=== PATIENT | male | born 1995 | race Caucasian/White ===

== ENCOUNTER 2017-12-27 00:31 | Emergency (ER) | payer OTHER, SELFPAY ==
--- NOTE | 2017-12-27 00:36 | ERPHSYRPT ---
- History of Present Illness Time Seen by Provider: 12/27/17 00:34 Source: patient Exam Limitations: no limitations Physician History: 22 y/o white male presents with cough. [facility] and dx with bronchitis but feels as though he is not moving any air. pt was given rx for z pack, albuterol inhaler and steroids. pt completed z pack yesterday. pt continues to smoke. Timing/Duration: week(s) (1) Cough Quality/Degree: mild, dry cough Possible Cause: occasional episodes Modifying Factors: Improves With: coughing Associated Symptoms: cough, shortness of breath International travel in last 2 weeks: No Allergies/Adverse Reactions: bee pollen [Bee Pollen] Allergy (Mild, Verified 12/27/17 00:51) Difficulty Breathing droperidol [From Inapsine] Adverse Reaction (Verified 12/27/17 00:51) panic attack olanzapine [From Zyprexa] Adverse Reaction (Verified 12/27/17 00:51) weight gain Home Medications: Albuterol Sulfate [Albuterol Sulfate Hfa] 1 puff IH Q4-6HPRN PRN 12/27/17 [ History] Hx Tetanus, Diphtheria Vaccination/Date Given: Yes (UP TO DATE) Hx Influenza Vaccination/Date Given: No Hx Pneumococcal Vaccination/Date Given: No - Review of Systems Constitutional: No Symptoms, No Fever, No Chills Eyes: No Symptoms, No Discharge, No Eye Pain Ears, Nose, & Throat: No Symptoms, No Ear Pain, No Ear Discharge Respiratory: Cough, Dyspnea, Stridor, No Wheezing Cardiac: No Symptoms, No Chest Pain, No Edema, No Palpitations, No Syncope Abdominal/Gastrointestinal: No Symptoms, No Abdominal Pain, No Nausea, No Vomiting, No Diarrhea Genitourinary Symptoms: No Symptoms, No Dysuria, No Frequency, No Hematuria Musculoskeletal: No Symptoms, Neck Pain, No Back Pain Skin: No Symptoms, No Cellulitis, No Rash Neurological: No Symptoms, No Dizziness, No Headache Psychological: No Symptoms, No Alcohol Abuse, No Drug Abuse, No Anxiety Endocrine: No Symptoms, No Polyuria, No Polydipsia, No Hair Changes Hematologic/Lymphatic: No Symptoms Immunological/Allergic: No Symptoms All Other Systems: Reviewed and Negative - Past Medical History Pertinent Past Medical History: Yes Neurological History: No Pertinent History ENT History: No Pertinent History Cardiac History: No Pertinent History Respiratory History: No Pertinent History Endocrine Medical History: No Pertinent History Musculoskeletal History: No Pertinent History GI Medical History: Other History: No Pertinent History Psycho-Social History: Bipolar, Other Male Reproductive Disorders: No Pertinent History Other Medical History: OCD SCHIZOPHRENIC. frequent headaches. ADHD. ASBURGERS. severe abdominal pain, constipation and rectal bleeding recently - Past Surgical History Past Surgical History: No Neuro Surgical History: No Pertinent History Cardiac: No Pertinent History Respiratory: No Pertinent History Gastrointestinal: No Pertinent History Genitourinary: No Pertinent History Musculoskeletal: No Pertinent History Male Surgical History: No Pertinent History - Social History Smoking Status: Current every day smoker How long have you smoked: 4 Exposure to second hand smoke: Yes Drug Use: none Patient Lives Alone: No Significant Family History: no pertinent family hx - Nursing Vital Signs Nursing Vital Signs: Initial Vital Signs Temperature 98.5 F 12/27/17 00:37 Pulse Rate 72 12/27/17 00:37 Respiratory Rate 98 H 12/27/17 00:37 Blood Pressure 145/73 12/27/17 00:37 O2 Sat by Pulse Oximetry 98 12/27/17 00:37 Pain Scale Pain Intensity 3 - Physical Exam General Appearance: no apparent distress, alert, anxiety Eye Exam: PERRL/EOMI, eyes nml inspection Ears, Nose, Throat Exam: normal ENT inspection, TMs normal, pharynx normal, moist mucous membranes Neck Exam: normal inspection, non-tender, supple, full range of motion Respiratory Exam: normal breath sounds, airway intact, wheezing (mild left upper exp), No chest tenderness, No respiratory distress, No accessory muscle use, No rhonchi, No stridor Cardiovascular Exam: regular rate/rhythm, normal heart sounds, normal peripheral pulses Gastrointestinal/Abdomen Exam: soft, normal bowel sounds, No tenderness, No guarding, No rebound Rectal Exam: not done Back Exam: normal inspection, normal range of motion, No CVA tenderness, No vertebral tenderness Extremity Exam: normal inspection, normal range of motion, pelvis stable Neurologic Exam: alert, oriented x 3, cooperative, statistical assistant II-XII nml as tested Skin Exam: normal color, warm, dry Lymphatic Exam: No adenopathy Oxygen Delivery: Room Air - Course Nursing assessment & vital signs reviewed: Yes Ordered Tests: Active Orders 24 hr Category Date Time Status CHEST 1 VIEW (PORTABLE) Stat Exams 12/27/17 00:55 Ordered Medication Summary Discontinued Medications Generic Name Dose Route Start Last Admin Trade Name Loulou PRN Reason Stop Dose Admin Ceftriaxone Sodium 1,000 mg 12/27/17 00:56 Rocephin 1000 Mg Inj IM 12/27/17 00:57 STAT ONE Methylprednisolone Sodium Succinate 125 mg 12/27/17 00:56 Solu-Medrol 125 Mg IM 12/27/17 00:57 STAT ONE - Progress Progress: improved, re-examined Air Movement: good Blood Culture(s) Obtained: No Antibiotics given: Yes Counseled pt/family regarding: diagnosis, need for follow-up, rad results - Departure Time of Disposition: 01:14 Departure Disposition: Home Clinical Impression: Bronchitis Condition: Stable Critical Care Time: No Referrals: ZIA COLLAZO MD [Primary Care Provider] - Additional Instructions: continue your inhaler. follow up with primary doctor for further management.
[2017-12-27 00:51] VITALS: BP 145/73
[2017-12-27] MEDS ORDERED: solu-MEDROL 125 MG IM ONE (00:56)
[2017-12-27] MEDS ORDERED: Rocephin 1000 MG INJ IM ONE (00:56)
[2017-12-27] MEDS ORDERED: solu-MEDROL 125 MG ONE (01:11)
[2017-12-27] MEDS ORDERED: Rocephin 1000 MG INJ ONE (01:11)
[2017-12-27] MEDS ORDERED: DUONEB 0.5-3 MG/3 ml Neb IH ONE ×2 (01:13→01:16)
[2017-12-27 01:30] VITALS: PULSE 83; O2SAT 96
--- NOTE | 2017-12-27 07:58 | XRAY ---
Indication: Cough and chest tightness. Comparison: November 08, 2016. Portable chest again demonstrates normal heart, lungs, and bony thorax.
== END 2017-12-27 01:36 | disposition home or self-care (01) ==
LOC: ED 00:31
DX: J40 Bronchitis, not specified as acute or chronic (principal)
CPT/HCPCS: 71045; 94150; 94640; 96372; 99284; J0696; J2930; A9270-GY

== ENCOUNTER 2022-12-24 10:43 | Emergency (ER) | payer OTHER ==
[2022-12-24 11:00] VITALS: TEMP 98.4
[2022-12-24 11:20] VITALS: O2SAT 97
[2022-12-24 11:21] LABS: Absolute Neutrophil Ct (ANC) 3.95 x10^3/uL (1.4-6.9); BASOPHIL % 0.6 % (0.0-0.4); Basophil (Absolute #) 0.04 x10^3/uL (0-0.4); Eosinophil % 5.4 % (0.00-5.0); Eosinophil (Absolute #) 0.37 x10^3/uL (0-0.5); Hematocrit 42.2 % (42-50); Hemoglobin 14.1 g/dL (12.5-18.0); IMMATURE GRAN # 0.01 x10^3u/L (0.00-0.03); IMMATURE GRAN % 0.1 % (0.00-0.4); Lymphocyte (Absolute #) 1.91 x10^3/uL (1.0-4.6); Lymphocytes % 28.1 % (24.0-44.0); Mean Corpuscular Hemoglobin 29.7 pg (26-32); Mean Corpuscular Hgb Concent. 33.4 g/dL (32-36); Mean Platelet Volume 9.5 fL (7.5-11.0); Monocyte (Absolute #) 0.52 x10^3/uL (0.0-1.3); Monocytes % 7.6 % (0.0-12.0); Neutrophil % 58.2 % (36.0-66.0); Platelet Count 358 x10^3/uL (150-450); Red Blood Count 4.74 x10^6/uL (4.1-5.6); Red Cell Distribution Width 12.9 % (11.5-14.0); White Blood Count 6.8 x10^3/uL (4.0-10.5)
--- NOTE | 2022-12-24 11:30 | XRAY ---
Indication: Chest pain. Comparison: September 17, 2018 Portable chest again demonstrates normal heart, lungs, and bony thorax.
[2022-12-24 11:34] LABS: ALBUMIN 4.7 g/dL (3.5-5.0); ALKALINE PHOSPHATASE 56 U/L (38-126); ANION GAP 15.1 MEQ/L (5-15); BLOOD UREA NITROGEN 10 mg/dL (9-20); CHLORIDE 105 mmol/L (98-107); Calcium 9.5 mg/dL (8.4-10.2); Carbon Dioxide 24 mmol/L (22-30); EST GLOMERULAR FILTRATION RATE > 60.0 ML/MIN; Glucose 93 mg/dL (74-106); Potassium 3.9 mmol/L (3.5-5.1); SGOT/AST 33 U/L (17-59); SGPT/ALT 26 U/L (0-50); SODIUM 140 mmol/L (137-145); Total Protein 7.8 g/dL (6.3-8.2)
[2022-12-24] MEDS ORDERED: xanAX 0.25 MG PO ONE (12:32)
[2022-12-24] MEDS ORDERED: xanAX 0.25 MG ONE (12:35)
[2022-12-24 12:39] VITALS: PULSE 70; RESP 16
--- NOTE | 2022-12-24 13:24 | XRAY ---
Indication: Chest pain. Elevated d-dimer. Pulmonary embolus. Multiple contiguous axial images obtained through the chest using 80 cc Isovue 370 contrast and PE protocol. Comparison: None Good opacification of the pulmonary arteries to include lobar and segmental branches. No pulmonary embolus. Heart is not enlarged. Aorta is normal in course and caliber. No pathologic mediastinal/hilar lymphadenopathy. Lungs inflated and clear. Bony thorax intact. Limited upper abdomen unremarkable. Impression: Normal CT chest PE exam.
--- NOTE | 2022-12-24 13:34 | ERPHSYRPT ---
- History of Present Illness Time Seen by Provider: 12/24/22 11:00 Historian: patient Exam Limitations: no limitations Patient Subjective Stated Complaint: pt here for cough, pain with deep breath to right side of chest for over a week now, has been seen x2 Triage Nursing Assessment: pt alert, resp easy, walked in, skin w/d/p, no edema noted, moves all ext well Physician History: Patient is a 27-year-old male presents to our ED for evaluation of chest pain and a cough. Chest pain is mostly on the right side. No radiation. Patient was seen on 2 previous occasions for the same. Patient currently on antibiotics. However patient concerned that his symptoms are not improving. Patient has been experiencing the symptoms for approximately 1 week now no associated fever. No nausea vomiting or diaphoresis. No history of PE DVT. No rash. Patient otherwise doing well. Mother at bedside. They voice no other co mplaints or concerns at this time. Portions of this note were created with voice recognition technology. There may be grammatical, spelling, punctuation or sound alike errors Timing/Duration: week(s) (1 week) Activities at Onset: none Quality: aching Location: other (Right side of chest) Chest Pain Radiation: no radiation Severity of Pain-Max: moderate Severity of Pain-Current: mild Modifying Factors: Improves With: coughing Associated Symptoms: denies symptoms Prior Chest Pain/Cardiac Workup: no prior chest pain Nitro Today/Relief: no nitro taken today Aspirin Treatment Today: no aspirin today Allergies/Adverse Reactions: bee pollen [Bee Pollen] Allergy (Mild, Verified 12/24/22 10:53) Difficulty Breathing droperidol [From Inapsine] Adverse Reaction (Verified 12/24/22 10:53) panic attack olanzapine [From Zyprexa] Adverse Reaction (Verified 12/24/22 10:53) weight gain Home Medications: Albuterol Sulfate [Albuterol Sulfate Hfa] 1 puff IH Q4-6HPRN PRN 12/27/17 [History] Azithromycin [Azithromycin 250 mg Pack] 1 ea DAILY 12/24/22 [History] Benzonatate 200 mg PO DAILY 12/24/22 [History] Methylprednisolone Packet [Medrol Dosepack] 4 mg PO UD 12/24/22 [History] Hx Tetanus, Diphtheria Vaccination/Date Given: No Hx Influenza Vaccination/Date Given: No Hx Pneumococcal Vaccination/Date Given: No Immunizations Up to Date: Yes Travel Risk - International Travel Have you traveled outside of the country in past 3 weeks: No - Coronavirus Screening Are you exhibiting any of the following symptoms?: No Close contact with a COVID-19 positive Pt in past 14-21 Days: No - Vaccine Status Have you recieved a Covid-19 vaccination: No - Review of Systems Constitutional: No Symptoms, No Fever, No Chills Eyes: No Symptoms Ears, Nose, & Throat: No Symptoms Respiratory: No Symptoms, No Cough, No Dyspnea Cardiac: No Symptoms, No Chest Pain, No Edema, No Syncope Abdominal/Gastrointestinal: No Symptoms, No Abdominal Pain, No Nausea, No Vomiting, No Diarrhea Genitourinary Symptoms: No Symptoms, No Dysuria Musculoskeletal: No Symptoms, No Back Pain, No Neck Pain Skin: No Symptoms, No Rash Neurological: No Symptoms, No Dizziness, No Focal Weakness, No Sensory Changes Psychological: No Symptoms Endocrine: No Symptoms Hematologic/Lymphatic: No Symptoms Immunological/Allergic: No Symptoms All Other Systems: Reviewed and Negative - Past Medical History Pertinent Past Medical History: Yes Neurological History: No Pertinent History ENT History: No Pertinent History Cardiac History: No Pertinent History Respiratory History: No Pertinent History Endocrine Medical History: No Pertinent History Musculoskeletal History: No Pertinent History GI Medical History: Other History: No Pertinent History Psycho-Social History: Bipolar, Other Male Reproductive Disorders: No Pertinent History Other Medical History: OCD SCHIZOPHRENIC. frequent headaches. ADHD. ASBURGERS. severe abdominal pain, constipation and rectal bleeding recently - Past Surgical History Past Surgical History: No Neuro Surgical History: No Pertinent History Cardiac: No Pertinent History Respiratory: No Pertinent History Gastrointestinal: No Pertinent History Genitourinary: No Pertinent History Musculoskeletal: No Pertinent History Male Surgical History: No Pertinent History - Social History Smoking Status: Current every day smoker How long have you smoked: 4 Exposure to second hand smoke: Yes Drug Use: marijuana Patient Lives Alone: No Significant Family History: no pertinent family hx - Nursing Vital Signs Nursing Vital Signs: Initial Vital Signs Respiratory Rate 18 12/24/22 10:56 O2 Sat by Pulse Oximetry 97 12/24/22 10:56 Pain Scale Pain Intensity 3 - Physical Exam General Appearance: no apparent distress, alert Eye Exam: PERRL/EOMI, eyes nml inspection Ears, Nose, Throat Exam: normal ENT inspection, pharynx normal, moist mucous membranes Neck Exam: normal inspection, non-tender, supple, full range of motion Respiratory Exam: normal breath sounds, lungs clear, airway intact, No respiratory distress Cardiovascular Exam: regular rate/rhythm, normal heart sounds, normal peripheral pulses Gastrointestinal/Abdomen Exam: soft, normal bowel sounds, No tenderness, No mass Back Exam: normal inspection, No CVA tenderness, No vertebral tenderness Extremity Exam: normal inspection, normal range of motion Neurologic Exam: alert, oriented x 3, cooperative, normal mood/affect, sensation nml, No motor deficits Skin Exam: normal color, warm, dry Lymphatic Exam: No adenopathy SpO2 Interpretation: normal SpO2: 97 O2 Delivery: Room Air - Course Nursing assessment & vital signs reviewed: Yes EKG Interpreted by Me: RATE (60), Sinus Rhythm, NORMAL AXIS, NORMAL INTERVALS - Radiology Exams Chest X-ray Interpretation: Teleradiologist Report (Negative chest x-ray) - CT Exams Chest CT Interpretation: Tele-radiologist Report (CT chest negative for PE. No acute findings) Ordered Tests: Active Orders 24 hr Category Date Time Status Administration Intern STAT Care 12/24/22 11:07 Active Administration Intern STAT Care 12/24/22 11:11 Active EKG-ER Only STAT Care 12/24/22 11:10 Active Pulse Oximetry (ED) STAT Care 12/24/22 11:07 Active Pulse Oximetry (ED) STAT Care 12/24/22 11:10 Active CHEST 1 VIEW (PORTABLE) Stat Exams 12/24/22 11:11 Completed CHEST WITH CONTRAST [CT] Stat Exams 12/24/22 12:02 Completed CBC W DIFF Stat Lab 12/24/22 11:21 Completed CMP Stat Lab 12/24/22 11:21 Completed D-DIMER QUANTITATIVE Stat Lab 12/24/22 11:21 Completed TROPONIN Q4H Lab 12/24/22 11:21 Completed TROPONIN Q4H Lab 12/24/22 15:15 Ordered TROPONIN Q4H Lab 12/24/22 19:15 Ordered Transfer Order Routine Transfer 12/24/22 Ordered Medication Summary Discontinued Medications Generic Name Dose Route Start Last Admin Trade Name Freq PRN Reason Stop Dose Admin Alprazolam 0.25 mg 12/24/22 12:32 12/24/22 12:36 Alprazolam 0.25 Mg Tablet PO 12/24/22 12:33 0.25 mg STAT ONE Administration Alprazolam Confirm 12/24/22 12:35 Alprazolam 0.25 Mg Tablet Administered 12/24/22 12:36 Dose 0.25 mg .ROUTE .STK-MED ONE Lab/Rad Data: Laboratory Result Diagrams 12/24/22 11:21 12/24/22 11:21 Laboratory Results 12/24/22 12/24/22 12/24/22 Range/Units 11:21 11:21 11:21 WBC (4.0-10.5) x10^3/uL RBC (4.1-5.6) x10^6/uL Hgb (12.5-18.0) g/dL Hct (42-50) % MCV (78-100) fL MCH (26-32) pg MCHC (32-36) g/dL RDW (11.5-14.0) % Plt Count (150-450) x10^3/uL MPV (7.5-11.0) fL Gran % (36.0-66.0) % Immature Gran % (Auto) (0.00-0.4) % Nucleat RBC Rel Count (0.00-0.1) % Eos # (Auto) (0-0.5) x10^3/uL Immature Gran # (Auto) (0.00-0.03) x10^3u/L Absolute Lymphs (auto) (1.0-4.6) x10^3/uL Absolute Monos (auto) (0.0-1.3) x10^3/uL Absolute Nucleated RBC (0.00-0.01) x10^3u/L Lymphocytes % (24.0-44.0) % Monocytes % (0.0-12.0) % Eosinophils % (0.00-5.0) % Basophils % (0.0-0.4) % Absolute Granulocytes (1.4-6.9) x10^3/uL Basophils # (0-0.4) x10^3/uL D-Dimer 0.55 H (0.0-0.50) mg/L Sodium 140 (137-145) mmol/L Potassium 3.9 (3.5-5.1) mmol/L Chloride 105 (98-107) mmol/L Carbon Dioxide 24 (22-30) mmol/L Anion Gap 15.1 H (5-15) MEQ/L BUN 10 (9-20) mg/dL Creatinine 0.90 (0.66-1.25) mg/dL Estimated GFR > 60.0 ML/MIN Glucose 93 (74-106) mg/dL Calcium 9.5 (8.4-10.2) mg/dL Total Bilirubin 0.80 (0.2-1.3) mg/dL AST 33 (17-59) U/L ALT 26 (0-50) U/L Alkaline Phosphatase 56 (38-126) U/L Troponin I < 0.012 (0.000-0.034) ng/mL Serum Total Protein 7.8 (6.3-8.2) g/dL Albumin 4.7 (3.5-5.0) g/dL 12/24/22 Range/Units 11:21 WBC 6.8 (4.0-10.5) x10^3/uL RBC 4.74 (4.1-5.6) x10^6/uL Hgb 14.1 (12.5-18.0) g/dL Hct 42.2 (42-50) % MCV 89.0 (78-100) fL MCH 29.7 (26-32) pg MCHC 33.4 (32-36) g/dL RDW 12.9 (11.5-14.0) % Plt Count 358 (150-450) x10^3/uL MPV 9.5 (7.5-11.0) fL Gran % 58.2 (36.0-66.0) % Immature Gran % (Auto) 0.1 (0.00-0.4) % Nucleat RBC Rel Count 0.0 (0.00-0.1) % Eos # (Auto) 0.37 (0-0.5) x10^3/uL Immature Gran # (Auto) 0.01 (0.00-0.03) x10^3u/L Absolute Lymphs (auto) 1.91 (1.0-4.6) x10^3/uL Absolute Monos (auto) 0.52 (0.0-1.3) x10^3/uL Absolute Nucleated RBC 0.00 (0.00-0.01) x10^3u/L Lymphocytes % 28.1 (24.0-44.0) % Monocytes % 7.6 (0.0-12.0) % Eosinophils % 5.4 H (0.00-5.0) % Basophils % 0.6 (0.0-0.4) % Absolute Granulocytes 3.95 (1.4-6.9) x10^3/uL Basophils # 0.04 (0-0.4) x10^3/uL D-Dimer (0.0-0.50) mg/L Sodium (137-145) mmol/L Potassium (3.5-5.1) mmol/L Chloride (98-107) mmol/L Carbon Dioxide (22-30) mmol/L Anion Gap (5-15) MEQ/L BUN (9-20) mg/dL Creatinine (0.66-1.25) mg/dL Estimated GFR ML/MIN Glucose (74-106) mg/dL Calcium (8.4-10.2) mg/dL Total Bilirubin (0.2-1.3) mg/dL AST (17-59) U/L ALT (0-50) U/L Alkaline Phosphatase (38-126) U/L Troponin I (0.000-0.034) ng/mL Serum Total Protein (6.3-8.2) g/dL Albumin (3.5-5.0) g/dL - Progress Progress: improved Air Movement: good Progress Note: Patient is a 27-year-old male presents to our ED for evaluation of chest pain that occurs when he coughs and breathes. Symptoms have been ongoing for approximately 1 week. Patient diagnosed with bronchitis. Patient is here because her symptoms have not improved/resolved. EKG reveals normal sinus rhythm. Chest x-ray nonremarkable. D-dimer positive. CTA chest negative for PE. CBC CMP within normal limits. Troponin negative. Patient was nervous about obtaining his CAT scan. Patient was concerned that he would develop a panic attack. Patient received an oral dose of Xanax for relaxation. CAT scan was successfully completed. At this point patient is resting comfortably. Vital stable. Patient has no complaints. No indication for further work-up. Will discharge home. Patient to continue his outpatient medications/antibiotics as recommended per his prescriber. Patient agrees to follow-up with primary care doctor within 48 hours for reevaluation. Portions of this note were created with voice recognition technology. There may be grammatical, spelling, punctuation or sound alike errors Complexity of problems addressed is moderate acute complicated. No critical care time Complex of data reviewed and analyzed is moderate. Test ordered. Test reviewed and analyzed. Recruit independently reviewed the EKG. Chest x-ray and CTA chest results reviewed and clinically correlated. Plan of care established accordingly. Risk of complication and or risk of morbidity/mortality patient management is moderate. Patient received oral dose of Xanax which requires monitoring and a benzodiazepine kay patient. We will discharge home. Vital stable. Time to discharge patient is approximately 15 minutes. Plan of care established for shared decision making. No social determinants of health present to impede follow-up. Portions of this note were created with voice recognition technology. There may be grammatical, spelling, punctuation or sound alike errors 12/24/22 13:58 Blood Culture(s) Obtained: No Antibiotics given: No Counseled pt/family regarding: lab results, diagnosis, need for follow-up, rad results - Departure Departure Disposition: Home Clinical Impression: Cough, Pleuritic chest pain Condition: Stable Critical Care Time: No Referrals: ZIA COLLAZO MD [Primary Care Provider] - Follow up/PCP as directed Additional Instructions: Discharge/Care Plan CHRISTIANO HELM was seen on 12/24/22 in the Emergency Room. The patient was counseled regarding Diagnosis,Lab results, Imaging studies, need for follow up and when to return to the Emergency Room. Prescriptions given: Discharge Note I have spoken with the patient and/or caregivers. I have explained the patient's condition, diagnosis and treatment plan based on the information available to me at this time. I have answered the patient's and/or caregiver's questions and addressed any concerns. The patient and/or caregivers have as good understanding of the patient's diagnosis, condition and treatment plan as can be expected at this point. The vital signs have been stable. The patient's condition is stable and appropriate for discharge from the emergency department. The patient will pursue further outpatient evaluation with the primary care physician or other designated or consulting physician as outlined in the discharge instructions. The patient and/or caregivers are agreeable to this plan of care and follow-up instructions have been explained in detail. The patient and/or caregivers have received these instruction. The patient/and or caregivers are aware that any significant change in condition or worsening of symptoms should prompt an immediate return to this or the closest emergency department or call 911.
[2022-12-24 13:56] VITALS: BP 114/76
== END 2022-12-24 14:13 | disposition home or self-care (01) ==
LOC: ED 10:43
DX: R05.9 Cough, unspecified (principal); R07.81 Pleurodynia; Z79.52 Long term (current) use of systemic steroids; Z79.899 Other long term (current) drug therapy; Z28.310 Unvaccinated for COVID-19; Z72.0 Tobacco use
CPT/HCPCS: 36415; 71045; 71260; 80053; 84484; 85025; 85379; 93005; 93041; 94760; 99284; A9270-GY